=== PATIENT | female | born 1955 | race Caucasian/White ===

== ENCOUNTER 2020-02-05 13:44 | Emergency (ER) | payer OTHER, SELFPAY ==
[2020-02-05 13:56] VITALS: BMI 29.2
[2020-02-05 13:59] VITALS: BP 148/88; PULSE 78; RESP 18; TEMP 36.8; O2SAT 96
--- NOTE | 2020-02-05 14:05 | ED_ITS ---
HPI - General Adult General: Chief complaint: General Medical Stated complaint: blood sugar high Time Seen by Provider: 02/05/20 13:59 Source: patient Mode of arrival: ambulatory Limitations: no limitations Review of Systems General: Reports: 10 or more systems reviewed and unremarkable except in HPI and below PFSH ED PFSH: Social History Smoking and tobacco status: never smoked Physical Exam Const: COMMON NORMALS: no apparent distress and oriented x3 GENERAL APPEARANCE: cooperative HENMT: COMMON NORMALS: normocephalic, TM's normal bilaterally and external nose normal HEAD & SCALP: normal to inspection and normocephalic NOSE: external nose normal TYMPANIC MEMBRANE: TM's normal bilaterally MOUTH: oral and palatal mucosa normal THROAT: posterior oropharynx normal Eye: GENERAL EYE: normal appearance of both eyes Neck/C-Spine: COMMON NORMALS: full ROM Lymph: LYMPHATIC: no lymphadenopathy noted Chest: COMMONS NORMALS: inspection of chest normal Resp: COMMON NORMALS: normal respiratory effort EFFORT & INSPECTION: Yes able to speak in complete sentences Cardio: COMMON NORMALS: regular rate and regular rhythm RATE: regular rate RHYTHM: regular rhythm GI: COMMON NORMALS: non-tender : COMMON NORMALS: Yes no CVA tenderness BLADDER/KIDNEY EXAM: Yes no CVA tenderness Back/Pelvis: COMMON NORMALS: no CVA tenderness and thoracic and lumbar spine normal to inspection Extremity: COMMON NORMALS: normal to inspection Neuro: COMMON NORMALS: oriented x3 and moves all extremities Psych: COMMON NORMALS: mental status grossly normal and cooperative Skin: COMMON NORMALS: no rashes or lesions noted GENERAL SKIN EXAM: no rashes or lesions noted Course Vital Signs: Vital signs: Vital Signs Temperature 98.3 F 02/05/20 13:59 Pulse Rate 78 02/05/20 13:59 Respiratory Rate 18 02/05/20 13:59 Blood Pressure 148/88 02/05/20 13:59 Pulse Oximetry 96 02/05/20 13:59 MDM - General Adult MDM Narrative: Medical decision making narrative: Patient comes in today for concerns of elevated blood sugar. Patient was referred from her primary care office due to blood sugar being elevated for the last 5 days. Exam notes no abdominal tenderness. Respirations are even lungs are clear to auscultation. Skin is warm and dry color is pink. No edema is noted in the extremities. Vital signs are normal. Differential diagnosis includes urinary tract infection, pancreatitis, diabetic ketoacidosis, hyperglycemia due to diabetes type 2. Laboratory values noted no ketones in the serum, CBC and CMP were normal except for some elevation in blood glucose at 397, sodium 133, and some mild elevation in liver enzymes. Urinalysis was noticeable for elevated blood glucose. Reviewed with patient recommendations for following up with Dr. Matheus chaudhari for further treatment options for better control of his blood glucose. Recommended at this time maintaining a caloric intake of 1800 hortensia a day. Trying to stay active which patient is very active at her job. Patient reports understanding and agreed to plan. Lab Data: Labs: Lab Results 02/05/20 02/05/20 02/05/20 Range/Units 14:17 14:17 14:17 WBC 9.1 (4.0-10.0) 10^3/ uL RBC 4.49 (4.1-5.3) 10^6/u L Hgb 13.6 (11.5-15.3) g/dL Hct 39.8 (37.0-47.0) % MCV 88.6 (81-99) fL MCH 30.3 (28.0-34.0) pg MCHC 34.2 (30.0-36.0) g/dL RDW 11.4 L (12.1-15.1) % Plt Count 335 (130-400) 10^3/c mm MPV 10.4 (7.4-10.4) fL Neut % (Auto) 78.5 % Lymph % (Auto) 13.8 % [place] % (Auto) 5.8 % Eos % (Auto) 0.9 % Baso % (Auto) 0.6 % Neut # (Auto) 7.1 (1.8-7.7) 10^3/u L Lymph # (Auto) 1.3 (0.8-4.8) 10^3/u L [place] # (Auto) 0.5 (0.2-0.9) 10^3/u L Eos # (Auto) 0.1 (0.0-0.8) 10^3/u L Baso # (Auto) 0.1 (0.0-0.1) 10^3/u L Nucleated RBC % (a uto) 0 % Nucleated RBCs # 0.0 /100WBC Sodium 133 L (136-145) mmol/L Potassium 3.9 (3.5-5.1) mmol/L Chloride 94 L (98-107) mmol/L Carbon Dioxide 26 (22-29) mmol/L Anion Gap 16.9 (5-19) BUN 13 (8-23) mg/dL Creatinine 0.8 (0.5-0.9) mg/dL GFR Calculation 72.7 L (90-130) mL/min Glucose 397 H (65-115) mg/dL POC Glucose (70-110) mg/dL Calculated Osmolal ity 289 (285-295) mOsm/k g Calcium 10.0 (8.5-10.5) mg/dL Total Bilirubin 0.4 (0.15-1.2) mg/dL AST 59 H (0-32) U/L ALT 79 H (0-33) U/L Alkaline Phosphata se 175 H (35-105) IU/L Total Protein 7.1 (6.6-8.7) g/dL Albumin 4.3 (3.5-5.2) g/dL Globulin 2.8 (1.3-4.6) g/dL Lipase 31 (13-60) U/L Urine Color (Yellow) Urine Appearance (CLEAR) Urine pH (5-7) Ur Specific Gravit y (1.005-1.030) Urine Protein (Negative) Urine Glucose (UA) (Normal) Urine Ketones (Negative) Urine Blood (Negative) Urine Nitrate (Negative) Urine Bilirubin (NEGATIVE) Prot Sulfosalicyli c Acd (Negative) Urine Urobilinogen (Negative) mg/dL Ur Leukocyte Eufemia ase (Negative) Urine RBC (0-2) /hpf Urine WBC (0-5) /hpf Ur Squamous Epith Cells (0-5) Urine Bacteria (NONE) Serum Ketones Negative (Negative) 02/05/20 02/05/20 Range/Units 14:23 15:30 WBC (4.0-10.0) 10^3/ uL RBC (4.1-5.3) 10^6/u L Hgb (11.5-15.3) g/dL Hct (37.0-47.0) % MCV (81-99) fL MCH (28.0-34.0) pg MCHC (30.0-36.0) g/dL RDW (12.1-15.1) % Plt Count (130-400) 10^3/c mm MPV (7.4-10.4) fL Neut % (Auto) % Lymph % (Auto) % [place] % (Auto) % Eos % (Auto) % Baso % (Auto) % Neut # (Auto) (1.8-7.7) 10^3/u L Lymph # (Auto) (0.8-4.8) 10^3/u L [place] # (Auto) (0.2-0.9) 10^3/u L Eos # (Auto) (0.0-0.8) 10^3/u L Baso # (Auto) (0.0-0.1) 10^3/u L Nucleated RBC % (a uto) % Nucleated RBCs # /100WBC Sodium (136-145) mmol/L Potassium (3.5-5.1) mmol/L Chloride (98-107) mmol/L Carbon Dioxide (22-29) mmol/L Anion Gap (5-19) BUN (8-23) mg/dL Creatinine (0.5-0.9) mg/dL GFR Calculation (90-130) mL/min Glucose (65-115) mg/dL POC Glucose 368 (70-110) mg/dL Calculated Osmolal ity (285-295) mOsm/k g Calcium (8.5-10.5) mg/dL Total Bilirubin (0.15-1.2) mg/dL AST (0-32) U/L ALT (0-33) U/L Alkaline Phosphata se (35-105) IU/L Total Protein (6.6-8.7) g/dL Albumin (3.5-5.2) g/dL Globulin (1.3-4.6) g/dL Lipase (13-60) U/L Urine Color Yellow (Yellow) Urine Appearance Clear (CLEAR) Urine pH 8 H (5-7) Ur Specific Gravit y 1.010 (1.005-1.030) Urine Protein Neg (Negative) Urine Glucose (UA) 4+ H (Normal) Urine Ketones Negative (Negative) Urine Blood Neg (Negative) Urine Nitrate Negative (Negative) Urine Bilirubin Neg (NEGATIVE) Prot Sulfosalicyli c Acd Negative (Negative) Urine Urobilinogen Norm (Negative) mg/dL Ur Leukocyte Eufemia ase Trace H (Negative) Urine RBC None (0-2) /hpf Urine WBC 5-10 H (0-5) /hpf Ur Squamous Epith Cells 0-4 H (0-5) Urine Bacteria 1+ H (NONE) Serum Ketones (Negative) Discharge Plan Discharge Patient Disposition: Home, Self-Care Clinical Impression: Hyperglycemia due to type 2 diabetes mellitus Qualifiers: Diabetes mellitus oysterman insulin use: without oysterman use Qualified Code(s): E11.65 - Type 2 diabetes mellitus with hyperglycemia Condition: Stable Prescriptions: No Action glimepiride 2 mg tablet 2 mg PO BID RF: 0 levothyroxine 25 mcg tablet 25 mcg PO DAILY RF: 0 alprazolam 0.25 mg tablet 0.25 mg PO BID PRN (Reason: Anxiety) RF: 0 citalopram 20 mg tablet 20 mg PO DAILY RF: 0 metformin 1,000 mg tablet 1,000 mg PO BID RF: 0 hydrochlorothiazide 25 mg tablet 25 mg PO DAILY RF: 0 zolpidem 5 mg tablet 5 mg PO BEDTIME RF: 0 Referrals: Fernando Moulton MD [Primary Care Provider] - Discharge Diet: Usual diet Discharge Activity: Increase activity as tolerated Patient Instructions: Diabetic Hyperglycemia (ED) Activity Restrictions/Additional Instructions: Continue routine medications at home. Healthy diet with activity. Try to maintain caloric intake to 1800 hortensia a day. Avoid concentrated sweets and sugary beverages. Follow-up with primary care, Dr. Moulton, to discuss further treatment options available for you for better glucose control. Return to the ER for high fever, nausea vomiting, or new concerns. Coding Level of Care Code ED Cell Plasterer for Myriam Fwd Exam Comprehensive
[2020-02-05 14:24] LABS: Basophils # 0.1 10^3/uL (0.0-0.1); Basophils % 0.6 %; Eosinophils # 0.1 10^3/uL (0.0-0.8); Eosinophils % 0.9 %; Hematocrit 39.8 % (37.0-47.0); Hemoglobin 13.6 g/dL (11.5-15.3); Lymphocytes # 1.3 10^3/uL (0.8-4.8); Lymphocytes % 13.8 %; Mean Corpuscular HGB Conc 34.2 g/dL (30.0-36.0); Mean Corpuscular Hemoglobin 30.3 pg (28.0-34.0); Mean Corpuscular Volume 88.6 fL (81-99); Mean Platelet Volume 10.4 fL (7.4-10.4); Monocytes # 0.5 10^3/uL (0.2-0.9); Monocytes % 5.8 %; Neutrophils # 7.1 10^3/uL (1.8-7.7); Neutrophils % 78.5 %; Nucleated Red Blood Cells % 0 %; Platelet Count 335 10^3/cmm (130-400); Red Blood Count 4.49 10^6/uL (4.1-5.3); Red Cell Distribution Width 11.4 % (12.1-15.1); White Blood Count 9.1 10^3/uL (4.0-10.0)
[2020-02-05] MEDS: sodium chloride 0.9% 1,000 ML 999 ML IV (14:24)
[2020-02-05 14:29] LABS: Glucose Point of Care 368 mg/dL (70-110)
[2020-02-05 14:36] LABS: Ketone (Acetest) Serum Negative (Negative)
[2020-02-05 14:38] LABS: Alanine Aminotransferase 79 U/L (0-33); Albumin Level 4.3 g/dL (3.5-5.2); Alkaline Phosphatase 175 IU/L (35-105); Anion Gap 16.9 (5-19); Aspartate Amino Transferase 59 U/L (0-32); Blood Urea Nitrogen 13 mg/dL (8-23); Carbon Dioxide 26 mmol/L (22-29); Chloride 94 mmol/L (98-107); Globulin 2.8 g/dL (1.3-4.6); Glomerular Filtration Rate 72.7 mL/min (90-130); Glucose 397 mg/dL (65-115); Lipase 31 U/L (13-60); Osmolality Calculated 289 mOsm/kg (285-295); Potassium 3.9 mmol/L (3.5-5.1); Sodium 133 mmol/L (136-145); Total Bilirubin 0.4 mg/dL (0.15-1.2); Total Protein 7.1 g/dL (6.6-8.7)
[2020-02-05 16:50] LABS: Blood Urine Neg (Negative); Ketones Urine Negative (Negative); Protein Urine Neg (Negative); Urine Appearance Clear (CLEAR); Urine Color Yellow (Yellow); pH Urine 8 (5-7)
[2020-02-05 16:51] LABS: Add Urine Microscopic? YES; Bilirubin Urine Neg (NEGATIVE); Glucose Urine UA 4+ (Normal); Leukocyte Esterase Urine Trace (Negative); Nitrate Urine Negative (Negative); Sulfosalicylic Acid Urine Negative (Negative); Urobilinogen Urine Norm (Negative)
[2020-02-05 16:57] LABS: Add Urine Culture? Yes; Bacteria Urine 1+; Squamous Epithelial Cell Urine 0-4 (0-5)
[2020-02-05 17:12] VITALS: BP 132/86; PULSE 76; RESP 17; O2SAT 95
[2020-02-06 07:36] LABS: ABG PCO2 42.3 mmHg (35-45); ABG PH Result 7.45 (7.35-7.45)
[2020-02-06 07:37] LABS: Base Excess ABG 4.7 mmol/L (-2.0-2.0); HCO3 ABG 29.3 mmol/L (22-26); PO2 ABG 65.1 mmHg (80.0-100.0)
[2020-02-06 07:38] LABS: Arterial Blood Gas Hematocrit 42.4 % (37-47)
[2020-02-06 15:17] LABS: Blood Gas Allen Test Pos; Blood Gas Sample Site Radial, right; Blood Gas Sample Type Arterial
== END 2020-02-05 17:13 | disposition home or self-care (01) ==
PROVIDERS: Emergency Provider Nurse Practitioner Family; Family Provider Family Medicine; PCP Family Medicine
DX: E11.65 Type 2 diabetes mellitus with hyperglycemia (principal); Z79.84 Long term (current) use of oral hypoglycemic drugs
CPT/HCPCS: 12345; 36416; 36600; 80053; 81001; 82009; 82803; 82962; 83690; 85025; 87086; 96360; 99282; 99283; J7030